=== PATIENT | female | born 1955 | race Two or more races ===

== ENCOUNTER 2020-06-27 13:23 | Outpatient (CLI) | payer OTHER | END 2020-06-27 13:34 | disposition home or self-care (01) | LOC: RAD 13:23 | PROVIDERS: ATTEND Orthopaedic Surgery | DX: M25.551 Pain in right hip (principal); M25.512 Pain in left shoulder ==

== ENCOUNTER 2023-02-17 11:51 | Outpatient (CLI) | payer OTHER | END 2023-02-17 11:53 | disposition home or self-care (01) | LOC: RAD 11:51 | PROVIDERS: ATTEND Physical Medicine & Rehabilitation | DX: M54.2 Cervicalgia (principal) ==